=== PATIENT | female | born 1955 | race Caucasian/White ===

== ENCOUNTER 2018-06-13 19:38 | Emergency (ER) | payer SELFPAY ==
[2018-06-13] MEDS ORDERED: NORMAL SALINE 1000 ML 1,000 ML IV ONE (20:47)
--- NOTE | 2018-06-13 20:47 | ER Document Report ---
ED Medical Screen (RME) - General Chief Complaint: Groin Pain Stated Complaint: GROIN PAIN Time Seen by Provider: 06/13/18 20:43 Notes: Patient is a 63-year-old female that presents to the emergency department for chief complaint of right flank and groin pain. Pain started this morning and seemingly got worse over the course of today, history of kidney stones. ROS: Other than noted above, the 12 point review of systems was reviewed with the patient and were negative, all pertinent findings are included in the HPI. PHYSICAL EXAMINATION: Vital signs reviewed. GENERAL: Appears uncomfortable HEAD: Atraumatic, normocephalic. EYES: Pupils equal round extraocular movements intact, conjunctiva are normal. ENT: Nares patent NECK: Normal range of motion CV: Heart regular rate and rhythm LUNGS: No respiratory distress Musculoskeletal: Normal range of motion NEUROLOGICAL: Normal speech PSYCH: Normal mood, normal affect. MDM: Patient seen and examined for rapid initial assessment. Vital signs reviewed. A comprehensive ED assessment and evaluation of the patient, analysis of test results and completion of the medical decision making process will be conducted by additional ED providers. *Note is created using voice recognition software and may contain spelling, syntax or grammatical errors. TRAVEL OUTSIDE OF THE [place] IN LAST 30 DAYS: No - Related Data Allergies/Adverse Reactions: codeine Allergy (Verified 06/13/18 20:43) Past Medical History - Social History Chew tobacco use (# tins/day): No Frequency of alcohol use: None Drug Abuse: None - Past Medical History Cardiac Medical History: Reports: Hx Hypercholesterolemia, Hx Hypertension Endocrine Medical History: Reports: Hx Diabetes Mellitus Type 2 Renal/ Medical History: Denies: Hx Peritoneal Dialysis GI Medical History: Reports: Hx Gastroesophageal Reflux Disease Musculoskeltal Medical History: Reports Hx Arthritis Past Surgical History: Reports: Hx Cardiac Catheterization - 2 stents, Hx Cholecystectomy, Hx Nose Surgery, Hx Orthopedic Surgery - R/L foot Physical Exam - Vital signs Vitals: Temp Pulse Resp BP Pulse Ox 98.5 F 54 L 18 147/61 H 94 06/13/18 20:07 06/13/18 20:07 06/13/18 20:07 06/13/18 20:07 06/13/18 20:07 Course - Vital Signs Vital signs: Temp Pulse Resp BP Pulse Ox 98.5 F 54 L 18 147/61 H 94 06/13/18 20:07 06/13/18 20:07 06/13/18 20:07 06/13/18 20:07 06/13/18 20:07
[2018-06-13] MEDS ORDERED: MORPHINE SULFATE 10 MG/ML INJ IV ONE (20:48)
[2018-06-13] MEDS ORDERED: ONDANSETRON HCL INJ/PF 4 MG/2 ML SDV IV ONE (20:48)
[2018-06-13 21:28] LABS: APPEARANCE,URINE SLIGHTLY-CLOUDY; BILIRUBIN,URINE NEGATIVE (NEGATIVE); COLOR,URINE YELLOW; GLUCOSE, URINE NEGATIVE (NEGATIVE); KETONES,URINE NEGATIVE (NEGATIVE); LEUKOCYTE ESTERASE,URINE LARGE (NEGATIVE); NITRITE,URINE NEGATIVE (NEGATIVE); PROTEIN,URINE NEGATIVE (NEGATIVE); URINE SPECIFIC GRAVITY 1.017; UROBILINOGEN,URINE NEGATIVE mg/dL (<2.0)
--- NOTE | 2018-06-13 21:39 | RADIOLOGY REPORT (SQ) ---
EXAM DESCRIPTION: CT ABDOMEN PELVIS WITHOUT IV CONTRAST COMPLETED DATE/TME: 06/13/2018 20:47 CLINICAL HISTORY: 63 years, Female, right flank pain, hx kidney stones COMPARISON: None. TECHNIQUE: 333 Images stored on PACS. All CT scanners at this facility use dose modulation, iterative reconstruction, and/or weight based dosing when appropriate to reduce radiation dose to as low as reasonably achievable (ALARA). [facility]: Dose Right [facility]: CareDose [facility]: Dose Right [facility]: Teradose 4D [facility]: [employer] LIMITATIONS: None. FINDINGS: Limited evaluation of the lung bases is unremarkable. Osseous structures are grossly intact. Diffuse fatty infiltrative change to the liver. The spleen, adrenal glands, pancreas are unremarkable. Status post cholecystectomy. Nonobstructing renal calculi bilaterally, the largest on the left measuring 11 mm. There is also mild to moderate right-sided hydronephrosis and hydroureter, secondary to an approximately 2 to 3 mm right UVJ calculus. Moderate atheromatous change. No gross evidence for bowel obstruction. No free air or free fluid. Normal appendix. Fat-containing periumbilical hernia. Urinary bladder is not distended, limiting its evaluation. IMPRESSION: Nonobstructing renal calculi bilaterally. [id number] right-sided hydronephrosis/hydroureter secondary to a 23 mm right UVJ calculus. Fatty infiltrative change to the liver TECHNICAL DOCUMENTATION: Quality ID # [id number]: Final reports with documentation of one or more dose reduction techniques (e.g., Automated exposure control, adjustment of the mA and/or kV according to patient size, use of iterative reconstruction technique) copyright 2011 [employer]- All Rights Reserved
--- NOTE | 2018-06-13 22:39 | ER Document Report ---
ED General - General Chief Complaint: Groin Pain Stated Complaint: GROIN PAIN Time Seen by Provider: 06/13/18 20:43 Mode of Arrival: Ambulatory Information source: Patient Notes: 63-year-old female presents emergency department complaints of right flank pain that radiates into the right groin. She states that it started this morning and has worsened throughout the day. She describes the pain as an achy/crampy sensation. She denies any alleviating or exacerbating factors. She has not tri ed any medication for symptom relief. Patient states that she has felt similar pain in the past. She states that 4 years ago she had a kidney stone. Patient states that she is having some associated nausea and dysuria. TRAVEL OUTSIDE OF THE [place] IN LAST 30 DAYS: No - HPI Onset: This morning Onset/Duration: Persistent Quality of pain: Achy, Cramping Severity: Moderate Associated symptoms: Nausea Exacerbated by: Denies Relieved by: Denies Similar symptoms previously: Yes Recently seen / treated by doctor: No - Related Data Allergies/Adverse Reactions: codeine Allergy (Verified 06/13/18 20:43) Past Medical History - General Information source: Patient - Social History Smoking Status: Never Smoker Chew tobacco use (# tins/day): No Frequency of alcohol use: None Drug Abuse: None Family History: Reviewed & Not Pertinent Patient has suicidal ideation: No Patient has homicidal ideation: No - Past Medical History Cardiac Medical History: Reports: Hx Hypercholesterolemia, Hx Hypertension Endocrine Medical History: Reports: Hx Diabetes Mellitus Type 2 Renal/ Medical History: Denies: Hx Peritoneal Dialysis GI Medical History: Reports: Hx Gastroesophageal Reflux Disease Musculoskeletal Medical History: Reports Hx Arthritis Past Surgical History: Reports: Hx Cardiac Catheterization - 2 stents, Hx Cholecystectomy, Hx Nose Surgery, Hx Orthopedic Surgery - 2004/2014 R/L foot Review of Systems - Review of Systems Constitutional: No symptoms reported EENT: No symptoms reported Cardiovascular: No symptoms reported Respiratory: No symptoms reported Gastrointestinal: Nausea Genitourinary: Dysuria, Flank pain Female Genitourinary: No symptoms reported Musculoskeletal: No symptoms reported Skin: No symptoms reported Hematologic/Lymphatic: No symptoms reported Neurological/Psychological: No symptoms reported -: Yes All other systems reviewed and negative Physical Exam - Vital signs Vitals: Temp Pulse Resp BP Pulse Ox 98.5 F 54 L 18 147/61 H 94 06/13/18 20:07 06/13/18 20:07 06/13/18 20:07 06/13/18 20:07 06/13/18 20:07 - Notes Notes: PHYSICAL EXAMINATION: GENERAL: Well-appearing, well-nourished and in no acute distress. HEAD: Atraumatic, normocephalic. EYES: Pupils equal round and reactive to light, extraocular movements intact, conjunctiva are normal. ENT: Nares patent, oropharynx clear without exudates. Moist mucous membranes. NECK: Normal range of motion, supple without lymphadenopathy LUNGS: Breath sounds clear to auscultation bilaterally and equal. No wheezes rales or rhonchi. HEART: Regular rate and rhythm without murmurs ABDOMEN: Soft, nontender, nondistended abdomen. No guarding, no rebound. No CVA tenderness. Female : deferred Musculoskeletal: Normal range of motion, no pitting or edema. No cyanosis. NEUROLOGICAL: Cranial nerves grossly intact. Normal speech, normal gait. Normal sensory, motor exams PSYCH: Normal mood, normal affect. SKIN: Warm, Dry, normal turgor, no rashes or lesions noted. Course - Re-evaluation Re-evalutation: 06/13/18 23:27 Labs and imaging obtained. CT abdomen pelvis was done and shows a 2-3 mm stone at the right UVJ. Patient also has bilateral renal calculus. Urinalysis shows signs of infection. Patient states that she has been having some dysuria. I will start her on an antibiotic. I will provide her with Keflex, Zofran, Topton on discharge. Patient states that her allergy to Topton is nausea. Pain is currently controlled in the ED. Patient feels comfortable with discharge home and following up with primary care physician this week. I will give the patient a referral to a urologist as well. I told her to follow-up with her primary care physician this week, to take the medication prescribed as directed, and to return for worsening symptoms. Patient is agreeable with plan of care. 06/13/18 23:32 - Vital Signs Vital signs: Temp Pulse Resp BP Pulse Ox 98.5 F 54 L 18 147/61 H 94 06/13/18 20:07 06/13/18 20:07 06/13/18 20:07 06/13/18 20:07 06/13/18 20:07 - Laboratory Result Diagrams: 06/13/18 22:50 06/13/18 22:50 Laboratory results interpreted by me: 06/13/18 06/13/18 06/13/18 20:50 22:50 22:50 WBC 10.6 H Hct 35.6 L RDW 14.9 H Seg Neutrophils % 85.2 H Lymphocytes % 7.3 L Absolute Neutrophils 9.0 H Sodium 136.6 L BUN 22 H Glucose 157 H Total Protein 5.9 L Urine Blood LARGE H Ur Leukocyte Esterase LARGE H Discharge - Discharge Clinical Impression: Ureteral calculus Urinary tract infection Qualifiers: Urinary tract infection type: acute cystitis Hematuria presence: without hematuria Qualified Code(s): N30.00 - Acute cystitis without hematuria Condition: Good Disposition: HOME, SELF-CARE Instructions: Urinary Tract Infection ([facility]), Cephalexin ([facility]) Prescriptions: Ondansetron [Zofran Odt 4 mg Tablet] 1 tab PO Q4HP PRN #10 tab.rapdis PRN Reason: Cephalexin Monohydrate [Keflex 500 mg Capsule] 500 mg PO Q6H 7 Days #28 capsule Hydrocodone/Acetaminophen [Topton 5-325 mg Tablet] 1 tab PO Q4 #5 tablet Referrals: INOCENCIO CRAIG MD [NO LOCAL MD] - Follow up as needed NISH GUTIERREZ MD [ACTIVE STAFF] - Follow up as needed
[2018-06-13 23:02] LABS: ABSOLUTE EOSINOPHILS # (AUTO) 0.1 10^3/uL (0.0-0.6); ABSOLUTE LYMPHOCYTES (AUTO) 0.8 10^3/uL (0.5-4.7); ABSOLUTE MONOCYTES (AUTO) 0.7 10^3/uL (0.1-1.4); BASOPHILS % (AUTO) 0.3 % (0-2); HEMATOCRIT 35.6 % (36.0-47.0); LYMPHOCYTES % (AUTO) 7.3 % (13-45); MEAN CORPUSCULAR HEMOGLOBIN 27.3 pg (27.0-33.4); MEAN CORPUSCULAR HGB CONC 33.7 g/dL (32.0-36.0); MEAN CORPUSCULAR VOLUME 81 fl (80-97); MONOCYTES % (AUTO) 6.2 % (3-13); PLATELET COUNT 246 10^3/uL (150-450); RED BLOOD COUNT 4.39 10^6/uL (3.72-5.28); RED CELL DISTRIBUTION WIDTH 14.9 % (11.5-14.0); SEGMENTED NEUTROPHILS % (AUTO) 85.2 % (42-78); TOTAL CELLS COUNTED % (AUTO) 100 %; WHITE BLOOD COUNT 10.6 10^3/uL (4.0-10.5)
[2018-06-13 23:23] LABS: ALANINE AMINOTRANSFERASE 49 U/L (9-52); ALBUMIN 3.6 g/dL (3.5-5.0); ALKALINE PHOSPHATASE 68 U/L (38-126); ANION GAP 10 (5-19); ASPARTATE AMINO TRANSFERASE 33 U/L (14-36); BILIRUBIN,DIRECT 0.1 mg/dL (0.0-0.4); BILIRUBIN,TOTAL 0.5 mg/dL (0.2-1.3); BLOOD UREA NITROGEN 22 mg/dL (7-20); CALCIUM 9.8 mg/dL (8.4-10.2); CARBON DIOXIDE 27 mmol/L (22-30); CHLORIDE 100 mmol/L (98-107); GLUCOSE 157 mg/dL (75-110); POTASSIUM 3.8 mmol/L (3.6-5.0); SODIUM 136.6 mmol/L (137-145); TOTAL PROTEIN 5.9 g/dL (6.3-8.2)
[2018-06-14 00:02] VITALS: BP 132/60
== END 2018-06-14 00:10 | disposition home or self-care (01) ==
LOC: ER 19:38
DX: N13.2 Hydronephrosis with renal and ureteral calculous obstruction (principal); N30.00 Acute cystitis without hematuria; R11.0 Nausea; R30.0 Dysuria; E11.9 Type 2 diabetes mellitus without complications; I10 Essential (primary) hypertension; Z95.5 Presence of coronary angioplasty implant and graft; Z88.0 Allergy status to penicillin
CPT/HCPCS: 99284; 96361; 96374; 96375; 36415; 85025; 80053; 81001; 74176; J2270; J2405; J7030

== ENCOUNTER → 2018-08-12 | Outpatient (CLI) | payer OTHER ==
[~2018-08-12] MED LIST: REGADENOSON INJ 0.4 MG/5 ML DISP.SYRIN IV ONE
--- NOTE | 2018-08-12 22:10 | XCELERA REPORT ---
[address] [address] Transthoracic Echocardiogram Report Name: EDY BOWMAN Age: 63 yrs Gender: Female : 1955 Patient Status: Outpatient Patient Location: RAD Study Date: 08/12/2018 11:09 AM Height: 65 in Weight: 198 lb BSA: 2.0 m2 Procedure: A two-dimensional transthoracic echocardiogram with color flow and Doppler was performed. The study was technically limited with all images being suboptimal in quality. Reason For Study: CAD History: CAD / Coronary angioplasty status. Ordering Physician: ALICIA CORTEZ Performed By: Evangelina Licea Interpretation Summary The left ventricle is normal in size. There is normal left ventricular wall thickness. The left ventricular ejection fraction is within normal limits. LV EF is 70% Doppler measurements suggest impaired left ventricular relaxation, which is associated with grade I/IV or mild diastolic dysfunction The left ventricular wall motion is normal. Cannot assess for ASD, VSD , PFO presence. Right atrium not well visualized secondary to technical limitations The left atrial size is normal. There is no evidence of mitral valve prolapse. There is no vegetation seen on the mitral valve. There is mild mitral stenosis There is a trace amount of mitral regurgitation There is no aortic valvular vegetation. There is no aortic valve stenosis There is aortic sclerosis without aortic stenosis. There is no LVOT obstruction. No aortic regurgitation is present. There is no tricuspid stenosis. There is a trace amount of tricuspid regurgitation There is mild pulmonary hypertension by echo RVSp is 40 mm of Hg , with RA mean of 10. There is no pulmonic valvular stenosis. There is a trace amount of pulmonic regurgitation The aortic root is not well visualized but is probably normal size. The inferior vena cava was not visualized There is no pericardial effusion. MMode/2D Measurements & Calculations RVDd: 3.8 cm LVIDd: 5.0 cm FS: 43.5 % Ao root diam: 2.7 cm IVSd: 1.1 cm LVIDs: 2.8 cm EDV(Teich): 118.5 ml Ao root area: 5.6 cm2 LVPWd: 1.1 cm ESV(Teich): 30.3 ml LA dimension: 4.2 cm EF(Teich): 74.4 % Doppler Measurements & Calculations MV E max linwood: MV P1/2t max linwood: Ao V2 max: LV V1 max P.0 cm/sec 77.5 cm/sec 150.9 cm/sec 4.4 mmHg MV A max linwood: MV P1/2t: 99.0 msec Ao max PG: LV V1 max: 101.7 cm/sec MVA(P1/2t): 2.2 cm2 9.1 mmHg 104.6 cm/sec MV E/A: 0.77 MV dec slope: 229.3 cm/sec2 MV dec time: 0.33 sec PA V2 max: PI end-d linwood: TR max linwood: MV P1/2t-pr_phl: 115.0 cm/sec 164.1 cm/sec 271.9 cm/sec 99.0 msec PA max P.3 mmHg TR max P.6 mmHg Left Ventricle The left ventricle is normal in size. There is normal left ventricular wall thickness. The left ventricular ejection fraction is within normal limits. LV EF is 70%. Doppler measurements suggest impaired left ventricular relaxation, which is associated with grade I/IV or mild diastolic dysfunction. The left ventricular wall motion is normal. There is no thrombus. Cannot assess for ASD, VSD , PFO presence. Right Ventricle The right ventricle is not well visualized secondary to technical limitations. Atria Right atrium not well visualized secondary to technical limitations. The left atrial size is normal. Mitral Valve Calcified mitral apparatus causing mitral stenosis. There is no evidence of mitral valve prolapse. There is no vegetation seen on the mitral valve. There is mild mitral stenosis. There is a trace amount of mitral regurgitation. Aortic Valve There is no aortic valvular vegetation. There is no aortic valve stenosis. There is aortic sclerosis without aortic stenosis. There is no LVOT obstruction. No aortic regurgitation is present. Tricuspid Valve There is no tricuspid stenosis. There is a trace amount of tricuspid regurgitation. There is mild pulmonary hypertension by echo. RVSp is 40 mm of Hg , with RA mean of 10. Pulmonic Valve There is no pulmonic valvular stenosis. There is a trace amount of pulmonic regurgitation. Great Vessels The aortic root is not well visualized but is probably normal size. The inferior vena cava was not visualized. Effusions There is no pericardial effusion. : ALICIA CORTEZ > Janel Josue
--- NOTE | 2018-08-13 22:34 | DRAGON STRESS TEST REPORT ---
Intravenous Lexiscan Cardiolite stress test using single photon emmision computerized tomography. Date of procedure: .Ordering Provider: . Patient's status: Out Patient Indication: Patient with coronary artery disease and history of LAD obtuse marginal 1. Assess progression of CAD. Coronary risk factors: Age, diabetes mellitus, hypertension, dyslipidemia, family history of coronary artery disease and tobacco abuse disorder. Resting EKG: Sinus Rhythm. Poor R wave leads V1 to V6. Stress EKG: No changes of ischemia. The patient had no chest pain or discomfort, and there were no arrhythmias seen. Reason for termination: Protocol. Conclusions: Normal EKG and hemodynamic response to IV Lexiscan. Nuclear data: At rest the patient was given 13.59 millicuries of technetium 99m sestamibi injected intravenously. As per protocol rest non gated SPECT images were obtained. Subsequently the patient was given intravenous Lexiscan at a dose of 0.4 mg in 5 mL intravenously, followed by flush with normal saline. Subsequently the stress dose of 41.1 millicuries of technetium 99m sestamibi was injected intravenously. As per protocol stress gated images were obtained. Nuclear interpretation: Review of images showed that bowel contamination artifact of the inferior wall. In spite of this all segments of the myocardium had normal perfusion at rest, and normal perfusion post stress with IV Lexiscan. All segments of the myocardium had normal motion, contraction, and thickening by gated study. T. I D. ratio was borderline abnormal at 1.23 visually this is not reliable, and visually the TID ratio is normal. There is no transient ischemic dilatation of the left ventricle. Computer read rest, and stress left ventricular ejection fraction were 69 %, and 60 %, respectively. Conclusion: 1. There is no scintigraphic evidence of Lexiscan induced myocardial ischemia. 2. There is no scintigraphic evidence of myocardial infarction/scar. Recommendations: Aggressive risk factor modification, and treating the underlying co- morbidities. MTDD
== END ==
LOC: RAD 07:39
PROVIDERS: ATTEND Internal Medicine Cardiovascular Disease
DX: I25.10 Atherosclerotic heart disease of native coronary artery without angina pectoris (principal)
CPT/HCPCS: 93306; 93017; 78452; A9500; J2785; Q9969